=== PATIENT | female | born 2000 | race Caucasian/White ===

== ENCOUNTER 2023-07-21 13:15 | Emergency (ER) | payer OTHER, SELFPAY ==
[2023-07-21 13:20] VITALS: BP 139/90; PULSE 84; RESP 16; TEMP 36.3; O2SAT 98; BMI 39.8
--- NOTE | 2023-07-21 13:27 | ED.FEMALEGU ---
HPI - Female Genitourinary <Jaclyn Montemayor PA-C - Last Filed: 07/21/23 18:19> General Chief complaint: Vaginal Bleeding Stated complaint: abnormal bleeding, pain Time Seen by Provider: 07/21/23 13:26 History of Present Illness HPI Narrative: 22-year-old female with a history of irregular periods and ovarian cysts presents with her with concern for heavy and painful vaginal bleeding. Patient states that she has irregular periods often 5-6 weeks apart her last period ended July 03 a little over 2 weeks ago and yesterday it started again. She states yesterday when her period started it was very heavy she is been going through a super tampon every 2 hours she usually only needs a regular tampon every 4-5 hours. She says she is also been having very intense pain across her low abdomen associated with this it does feel a lot like period cramps simply much more intense than usual she is also having low back pain which she says she typically gets when she has her. She has no concern for and does feel like she is had some urinary frequency recently but denies pain with urination. She also denies dizziness, lightheadedness, nausea, vomiting generalized abdominal pain or upper abdominal pain or any other symptoms. She has seen a women's health provider about here her irregular periods but is not currently on any hormonal medication for this. She last had ovarian cysts with associated significant pain early this year. She states this is not as painful as it typically is when her ovarian cysts are acting up but thinks this is 1 possibility her pain is fairly constant she rates it as a 7 or 8/10 at times earlier today was a 10/10 and since her bleeding started yesterday it has not been less than a 6/10. She did take 2 Excedrin this morning with almost no relief. Related Data Allergies Allergy/AdvReac Type Severity Reaction Status Date / Time No Known Drug Allergies Allergy Verified 07/21/23 14:03 Review of Systems <Jaclyn Montemayor PA-C - Last Filed: 07/21/23 18:19> Review of Systems Narrative: See HPI Patient History <Jaclyn Montemayor PA-C - Last Filed: 07/21/23 18:19> tobacco type: vaping alcohol intake frequency: holidays/special occasions only Substance Use Type: marijuana Exam <ADONAY Ortiz Last Filed: 07/21/23 18:19> Narrative Exam Narrative: GENERAL: [22] year old patient appears stated age. Overweight patient, in mild distress. HEAD: Atraumatic. Normocephalic. EYES: Pupils equal round and reactive. Extraocular motions intact. No scleral icterus. No injection or drainage. ENT: Nose without bleeding, purulent drainage. Airway patent. NECK: Trachea midline. Non tender CARDIOVASCULAR: Regular rate and rhythm without murmurs, gallops, or rubs. RESPIRATORY: Clear to auscultation. Breath sounds equal bilaterally. No wheezes, rales, or rhonchi. GASTROINTESTINAL: Abdomen soft, there is generalized tenderness/increase in pain with palpation of the suprapubic region and lower quadrants otherwise non-tender, nondistended, no Rovsing, no McBurney's point tenderness. : deferred/declined EXTREMITIES: No edema or joint tenderness. BACK: No CVA tenderness, there is some pain at the lumbosacral junction and the paraspinal muscles not worsened by palpation Otherwise Nontender without deformity or crepitance. No flank tenderness. NEURO: AOx3. SKIN: No rash or erythema of visible areas Initial Vital Signs Initial Vital Signs: Vital Signs Temperature 97.4 F L 07/21/23 13:20 Pulse Rate 84 07/21/23 13:20 Respiratory Rate 16 07/21/23 13:20 Blood Pressure 139/90 07/21/23 13:20 Pulse Oximetry 98 07/21/23 13:20 Oxygen Delivery Method Room Air 07/21/23 13:20 <Nathen Mcneill DO - Last Filed: 07/22/23 07:04> Initial Vital Signs Initial Vital Signs: Vital Signs Temperature 97.4 F L 07/21/23 13:20 Pulse Rate 84 07/21/23 13:20 Respiratory Rate 16 07/21/23 13:20 Blood Pressure 139/90 07/21/23 13:20 Pulse Oximetry 98 07/21/23 13:20 Oxygen Delivery Method Room Air 07/21/23 13:20 Course <Jaclyn Montemayor PA-C - Last Filed: 07/21/23 18:19> Course Course Narrative: Did discuss options with the patient and given short duration of her bleeding with no symptoms suggesting acute anemia labs are not obtained other than a urine dip/ test today. Given patient's history of ovarian cysts, after discussion we do proceed with ultrasound for further evaluation as to potential cause of her heavier pain and bleeding. Rechecked the patient and she states she is feeling much much better the Toradol has brought her pain almost to a 0. She has not had increased or heavier bleeding than she did when she came in. Based on patient's ultrasound results with a large ovarian cyst that per patient was not present on her ultrasound in September of this year do consult on-call emergency faucets assembler doctor; do anticipate sending this patient out with close outpatient follow-up with Gynecology. Did speak with Dr. San who is on-call for OB, agrees patient should have urgent follow-up that she may likely need surgical intervention given the size of the cyst. He is open to having her see him and then he can refer to gynecology specifically; or she can see women's health provider/western philosophy professor that she has already been seeing previously for her irregular periods. [id number] Orders Ordered: Discontinued Medications Ketorolac Tromethamine (Ketorolac 30 Mg/Ml Vial) 30 mg IM NOW ONE Stop: 07/21/23 13:57 Last Admin: 07/21/23 14:03 Dose: 30 mg Documented By: RLS Vital Signs Vital signs: Vital Signs - 8 hr 07/21/23 13:20 07/21/23 16:45 Temperature 97.4 F L Pulse Rate 84 59 L Respiratory Rate 16 16 Blood Pressure 139/90 117/64 Pulse Oximetry 98 99 Oxygen Delivery Method Room Air Room Air <Nathen Mcneill DO - Last Filed: 07/22/23 07:04> Orders Ordered: Discontinued Medications Ketorolac Tromethamine (Ketorolac 30 Mg/Ml Vial) 30 mg IM NOW ONE Stop: 07/21/23 13:57 Last Admin: 07/21/23 14:03 Dose: 30 mg Documented By: RLS Vital Signs Vital signs: Vital Signs - 8 hr 07/21/23 13:20 07/21/23 16:45 Temperature 97.4 F L Pulse Rate 84 59 L Respiratory Rate 16 16 Blood Pressure 139/90 117/64 Pulse Oximetry 98 99 Oxygen Delivery Method Room Air Room Air MDM - Female Genitourinary <Jaclyn Montemayor PA-C - Last Filed: 07/21/23 18:19> Differential Diagnosis Differential diagnosis: Likely urinary tract infection, ruptured ovarian cyst, dysmenorrhea and other (Menorrhagia) Medical Records Attestation: I reviewed the patient's medical records. Lab Data Attestation: I reviewed the patient's lab results. Labs: Point of Care Testing Test Results Negative Urine Dip Bedside Urine Glucose Negative Bedside Urine Bilirubin - Negative Bedside Urine Ketone - Negative Urine Specific [place] 1.005 Bedside Urine Occult Blood +/- Bedside Urine pH 6.0 Bedside Urine Protein - Negative Bedside Urine Urobilinogen - Negative Bedside Urine Nitrite - Negative Bedside Urine Leukocytes - Negative Esterase Imaging Data US - SALES ASSISTANTS AND SALESPERSONS: Attestation: I personally reviewed and interpreted this imaging study as follows: My Impression: Agree with Radiology interpretation Radiologist's Impression: [address] [address] Ultrasound Report Signed Patient: Sharlene Thompson MR#: [id number] : 2000 Acct:[id number] Age/Sex: 22 / F Date of Service: 07/21/23 Loc: ED Accession Number: [id number] Procedure: US pelvic complete Ordering Provider: Jaclyn Montemayor P.A-C PROCEDURE: US PELVIC COMPLETE INDICATIONS: HEAVY PAINFUL PERIOD TECHNIQUE: Real-time scanning was performed of the pelvic organs, with image documentation. Additional endovaginal scanning was necessary due to incomplete visualization of the adnexal and endometrial structures by transabdominal scanning. COMPARISON: None. FINDINGS: Uterus: Uterus is retroverted and normal in size at 7.6 x 3.6 x 5.1 cm. The myometrium is homogeneous. The endometrium measures 4.9 mm combined thickness. Ovaries: The right ovary measures 1.9 x 2.6 x 2.1 cm, with a calculated ovarian volume of 5.4 cc. The left ovary measures 3.7 x 2.6 x 3.3 cm, with a calculated ovarian volume of 16.5 cc. Less than 12 follicles can be seen in each ovary. There is a well-marginated 10.4 x 5.5 x 8.3 cm cystic lesion which appears to originate within the right adnexa. There are internal echoes within this cystic lesion and multiple internal nonvascular septations. Other: No pathologic free abdominal or pelvic fluid. IMPRESSION: 1. Large pelvic cyst which appears to originate at the right adnexa; however the origin is somewhat unclear on this study given the large size. Differential considerations include large endometrioma or hemorrhagic cyst. However, cystic ovarian tumor is also considered in the differential. No prior studies are available at the time of this dictation for comparison. Gynecologic consultation recommended. Additionally, if further characterization is warranted, gynecologic protocol MRI could be used. We strive to produce accurate, complete, and clear reports of imaging services. To assist us in improving patient care, this report was composed using standard report templates and voice recognition software. Therefore, it may contain abnormal punctuation, insertions and/or omissions. Occasional wrong-word or sound-alike substitutions may occur. Though we review the report and make efforts to correct it, we do recommend that the report be read carefully in proper context to recognize any text inaccuracies. Dictated by: Rupal Brooks M.D. on 07/21/2023 at 15:46 Approved by: Rupal Brooks M.D. on 07/21/2023 at 15:[address] [facility] Narrative Medical decision making narrative: 22-year-old woman presents with her with concern for very heavy and painful menses. Her pain has been constant and does not fit with ovarian torsion symptoms I have less suspicion for this. Typically her periods are 5-6 weeks apart and irregular however her last 1 ended 17 days ago and she started bleeding again yesterday. I have some suspicion for simply a heavy menses with severe cramping as compared to her baseline cramping. However she does also have a history of ovarian cysts and after discussion and exam with notable suprapubic and low abdominal tenderness, pelvic ultrasound for further evaluation is ordered. Patient is quite confident that there is no risk of and she is given Toradol IM 30 mg to help with her significant pain. This does improve her pain from a 7 or 8/10 down to a 4/10 based on exam and history I am also less suspicious for other acute intra-abdominal process to explain her pain and bleeding. Appendicitis is unlikely. Ultrasound shows an approximately 10 x 8 x 5 cm ovarian cyst possibly originating in the right adnexa. Chipper Machine Operator consult is recommended. Did consult on-call OB doctor Tiago San who agrees it is reasonable for this patient to have outpatient follow-up unless she worsens, suspect that she will likely need surgery given the size of this cyst. Discussed this with the patient and included Dr. San's information advising her that she would need to see a western philosophy professor for further as he is not a western philosophy professor. Patient will follow-up either with her women's health provider and PCP or see Dr. San and have follow-up from there, we discussed return precautions ED precautions at length and she is in understanding. Follow up plan discussed, all questions answered. <Nathen Mcneill, DO - Last Filed: 07/22/23 07:04> Lab Data Labs: Point of Care Testing Test Results Negative Urine Dip Bedside Urine Glucose Negative Bedside Urine Bilirubin - Negative Bedside Urine Ketone - Negative Urine Specific [place] 1.005 Bedside Urine Occult Blood +/- Bedside Urine pH 6.0 Bedside Urine Protein - Negative Bedside Urine Urobilinogen - Negative Bedside Urine Nitrite - Negative Bedside Urine Leukocytes - Negative Esterase Discharge Plan Departure Patient Disposition: Home Clinical Impression: Pelvic pain Ovarian cyst Qualifiers: Laterality: unspecified laterality Qualified Code(s): N83.209 - Unspecified ovarian cyst, unspecified side Menorrhagia Qualifiers: Menorrhagia type: with irregular cycle Qualified Code(s): N92.1 - Excessive and frequent menstruation with irregular cycle Activity Restrictions/Additional Instructions: *You have been diagnosed with [ovarian cyst.] *What to do: *Please continue to take your regular medications as directed. [ ] New medication prescriptions sent to your pharmacy: [ ] [ ] New medication written as a paper prescription [ X] No new medications given *Please follow up with your primary care provider in 2-3 days, call for an appointment. Let them know you were seen in the Emergency Department and that we ask that you be seen in follow up. We will electronically transmit a record of today's note if your PCP is in our system. We did an ultrasound today to evaluate and you do have a large ovarian cyst approximately 10 x 5 x 8 cm. I spoke with our on-call women's health provider today and this is something that you definitely should have urgent follow-up on you can see them and get referred to Gynecology or you can see a gynecology provider of your choice. Because of the size of this there is a good chance that they may recommend having it surgically removed. If you have worsening pain or severe intermittent pain, or heavier bleeding or persistent bleeding it is important that you get re-evaluated immediately. With the larger cyst there is a higher risk of something called ovarian torsion, so if you have severe pain particularly severe intermittent pain it is important to get reassessed. We did not do labs today other than checking your urine, if you do have persistent bleeding and any symptoms of dizziness, lightheadedness shortness of breath or concerns or losing significant blood please make sure you get re-evaluated as well. After discussion about options for pain control, you declined something stronger and I recommend you try medications like Advil, Tylenol and ibuprofen for your pain the medicine we gave you today in the emergency department worked well, Toradol-- it is similar to ibuprofen. *If you do not have a primary care provider please contact the [facility] Resource line at [phone]. They will ask some questions about your medical history and help get you set up with a doctor in the community. *Return to Emergency Department if you should have any new, worsening or concerning symptoms, such as [fever greater than 101 F, shaking chills, worsening pain, persistent vomiting or other bothersome symptoms] Referrals: Tiago San MD [Physician] - (Large ovarian cyst [id number], consulted from ED) Stand Alone Forms: Patient Portal/API ED Sign-out <Nathen Mcneill DO - Last Filed: 07/22/23 07:04> [facility]: Dr Mcneill Co-Sign Statement: I was available for consultation during this patient's emergency department visit. This chart is signed by myself for administrative purposes only. I did not have direct contact with this patient during this visit. They were seen independently by the APC.
--- NOTE | 2023-07-21 13:57 | DI.US.S_ITS ---
PROCEDURE: US PELVIC COMPLETE INDICATIONS: HEAVY PAINFUL PERIOD TECHNIQUE: Real-time scanning was performed of the pelvic organs, with image documentation. Additional endovaginal scanning was necessary due to incomplete visualization of the adnexal and endometrial structures by transabdominal scanning. COMPARISON: None. FINDINGS: Uterus: Uterus is retroverted and normal in size at 7.6 x 3.6 x 5.1 cm. The myometrium is homogeneous. The endometrium measures 4.9 mm combined thickness. Ovaries: The right ovary measures 1.9 x 2.6 x 2.1 cm, with a calculated ovarian volume of 5.4 cc. The left ovary measures 3.7 x 2.6 x 3.3 cm, with a calculated ovarian volume of 16.5 cc. Less than 12 follicles can be seen in each ovary. There is a well-marginated 10.4 x 5.5 x 8.3 cm cystic lesion which appears to originate within the right adnexa. There are internal echoes within this cystic lesion and multiple internal nonvascular septations. Other: No pathologic free abdominal or pelvic fluid. IMPRESSION: 1. Large pelvic cyst which appears to originate at the right adnexa; however the origin is somewhat unclear on this study given the large size. Differential considerations include large endometrioma or hemorrhagic cyst. However, cystic ovarian tumor is also considered in the differential. No prior studies are available at the time of this dictation for comparison. Gynecologic consultation recommended. Additionally, if further characterization is warranted, gynecologic protocol MRI could be used. We strive to produce accurate, complete, and clear reports of imaging services. To assist us in improving patient care, this report was composed using standard report templates and voice recognition software. Therefore, it may contain abnormal punctuation, insertions and/or omissions. Occasional wrong-word or sound-alike substitutions may occur. Though we review the report and make efforts to correct it, we do recommend that the report be read carefully in proper context to recognize any text inaccuracies. Dictated by: Rupal Brooks M.D. on 07/21/2023 at 15:46 Approved by: Rupal Brooks M.D. on 07/21/2023 at 15:49
[2023-07-21] MEDS: KETOROLAC 30 MG/ML VIAL IM (14:03)
[2023-07-21 16:45] VITALS: BP 117/64; PULSE 59; RESP 16; O2SAT 99
== END 2023-07-21 17:14 | disposition home or self-care (01) ==
PROVIDERS: Emergency Provider Student in an Organized Health Care Education/Training Program
DX: R10.2 Pelvic and perineal pain (principal); N92.1 Excessive and frequent menstruation with irregular cycle; N83.201 Unspecified ovarian cyst, right side
CPT/HCPCS: 76830; 76856; 81003; 81025; 93975; 96372; 99284; J1885

== ENCOUNTER 2023-08-19 12:17 | Day surgery (SDC) | payer OTHER, SELFPAY ==
[2023-08-12 08:10] VITALS: BMI 38.9
[2023-08-19] VITALS (7 sets, daily range): BP systolic 113–126; BP diastolic 73–81; PULSE 58–82; RESP 12–19; TEMP 36.3–36.7; O2SAT 95–99; BMI 38.9
--- NOTE | 2023-08-19 | PATH_ITS ---
[facility] Accession Number: [id number] No. of containers..01 Tissue . 01 Material submitted: . ovary - RIGHT OVARIAN CYST . 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 Paratubal cysts and calcifications also present. Negative for significant atypia and malignancy. No ovarian tissue is identified. [facility] 08/30/2023 1033 Local . 01 Electronically signed: . Navjot Singh MD, Pathologist NPI- [id number] . 01 Gross description: . The specimen is received in formalin and labeled with the patient's name, , and right ovarian cyst, and consists of a disrupted cystic structure measuring 6.1 x 5.4 x 1.8 cm. The external surface is inked blue. There is a multiloculated cyst with taylor serous contents. No thickening or excrescences are identified. Also attached are several small pedunculated cysts measuring up to 0.9 cm in greatest dimension. Deck[employer] sections are submitted in cassettes A1-A5. ([id number]) . Additional sections are submitted in cassettes A6-A11. ([id number]) . Remaining specimen is submitted in cassettes A12-A23. ([id number]) /[facility] 08/26/2023 1815 Local . 01 Microscopic: . Microscopic examination of multiple submitted sections reveals a cystic-like structure with markedly dilated glands, lined by tubal epithelium surrounded by smooth muscle and dense fibrous tissue. This cystic structure is associated with residual fallopian tube that exhibits thick plicae with glands and fibrosis (histologic features of salpingitis isthmica nodosa). . There is no significant cytologic atypia, architectural complexity, or malignancy. . On multiple sections examined on the entire specimen submitted for histologic evaluation, there is no associated ovarian tissue. . Clinical and radiologic correlation is recommended. . As part of ongoing quality process engineer, selected slides are also reviewed by REGULATORY LEADER pathologist, Dr. Maribel Juarez, who agrees with the interpretation. . 01 Pathologist provided ICD-10: N83.201, R10.2 . 01 CPT . 636717 Specimen Comment: A courtesy copy of this report has been sent to [phone] Performed at: 01 [facility] [address] [place] [address], [place], [place] [id number] MD Bakari Monahan MD Phone: [phone]
[2023-08-19] MEDS: LACTATED RINGERS 1,000 ML 21 ML IV (12:55)
--- NOTE | 2023-08-19 12:58 | PM.PREOP ---
Pre-operative Note Interval Note History & Physical reviewed/Exam performed by Physician: Yes Changes to H&P: No
[2023-08-19] MEDS: BUPIVACAINE 0.5% (PF) 30 ML, EPINEPHrine 0.15 MG INJ (14:16)
--- NOTE | 2023-08-19 14:21 | SUR.OPER ---
Lithotomy on padded OR bed, head on pillow, arms secured on padded arm boards at <90 degrees abduction. Legs secured in padded yellow fins stirrups.
--- NOTE | 2023-08-19 15:04 | P.OP_ITS ---
Operative Date/Time/Diagnoses Date of procedure: 08/19/23 Time of procedure: 15:05 Pre-op diagnosis: Right adnexal mass Post-op diagnosis: same Procedure & Clinicians Procedure: Laparoscopy with removal of paraovarian cyst. Same procedure as scheduled: Yes Indications: Pelvic pain and 10 cm right adnexal cystic mass Surgeon: Sandra Syed Click Yes if Unassisted: Yes Anesthesia Type: General Operative Notes Findings: Large cystic mass likely paraovarian cyst partially torsed. Filmy adhesions between the liver and the anterior abdominal wall, Cory hoang Jb adhesions, filmy adhesions around the left ovary and tube, large cystic mass indistinguishable from the fallopian tube with partial torsion. Normal ovaries bilaterally. Normal uterus. Normal appendix. Normal-appearing bowel surface. No internal hernias. No endometriosis. Closure Type: primary Specimen(s): other (Right adnexal cystic mass) Estimated Blood Loss (mL): 10 Blood products transfused: none Procedure in detail: Patient was brought to the operating room where she underwent general anesthesia. She was placed in low [facility] stirrups and prepped and draped in usual sterile fashion. Pulsatile stockings were in place and functional. Warming was with blankets. A single-tooth tenaculum was placed on the anterior lip of the cervix and the cervix dilated to #6 Hegar dilator. The Zumi uterine manipulator was placed and balloon inflated with 3 mL of air. The area of the incisions were injected with half percent Marcaine with epinephrine. An incision was made in the umbilicus with a scalpel and the Verres needle placed in the abdomen. Confirmation of correct placement of the needle was performed by withdrawing on the syringe and then allowing fluid to fall freely through the needle. The abdomen was insufflated to 4 L of CO2. A 5 mm trocar was placed u nder direct visualization. 2 other 5 mm trochars were placed in the right and left lower quadrant under direct visualization after incising the skin. There did not appear to be any damage with placement of the trocars. The mass was elevated out of the posterior cul-de-sac and untwisted. The power seal was used to cut across the base of the mass however this was indistinguishable from the end of the fallopian tube. The majority of the fluid in the mass was removed. A 11 mm trocar was placed suprapubically to allow a Endo-Catch bag to be placed. The mass was placed in the Endo-Catch bag and brought up to the incision and removed. The mass was sent to pathology. Adhesions on the left ovary and tube were lysed. Adequate hemostasis was noted. The abdomen was irrigated copiously. The CO2 was allowed to escape from the abdomen. The trochars were removed. The fascial layer of the suprapubic site was closed with 0 Vicryl suture. Skin was closed with 4-0 monocryl. The patient went to recovery room in good condition. Counts of instruments and sponges were correct. Complications: none Post-operative Condition: stable Disposition: same day surgery Plan for aftercare: Home when awake and stable follow-up in 1 week.
[2023-08-19] MEDS: OXYCODONE IR 5 MG TABLET PO (15:13)
== END 2023-08-19 15:52 | disposition home or self-care (01) ==
PROVIDERS: Referring Provider Specialist; Visit Provider Specialist
PROC: (CPT 58662; principal; 2023-08-19 13:30)
DX: N70.11 Chronic salpingitis (principal); N83.8 Other noninflammatory disorders of ovary, fallopian tube and broad ligament; N83.201 Unspecified ovarian cyst, right side; R10.2 Pelvic and perineal pain; N73.6 Female pelvic peritoneal adhesions (postinfective)
CPT/HCPCS: 58662; J0171; J1885; J2250; J2704; J3010